=== PATIENT | female | born 1980 | race Caucasian/White ===

== ENCOUNTER 2025-05-09 21:38 | Inpatient (IN) | payer OTHER, SELFPAY ==
[2025-05-09 21:40] VITALS: BP 118/72; PULSE 87; RESP 18; TEMP 36.8; O2SAT 98; BMI 28.3
--- NOTE | 2025-05-09 21:55 | US_ITS ---
PROCEDURE: GALLBLADDER 05/09/2025 REASON FOR EXAM: RUQ PAIN, ABNORMAL LIVER ENZYMES TECHNIQUE: Procedure Code: USGB Modality: US Procedure: GALLBLADDER FINDINGS: Liver: 17.4 cm in length. Normal echogenicity. Intrahepatic biliary ductal dilation is present. Gallbladder: 10.9 cm in length. Sludge and a few gallstones are present. Gallbladder wall thickness of 0.3 cm. Positive sonographic Bryan's sign. Mild pericholecystic fluid. Common bile duct: 1.4 cm in diameter. A few stones are visualized within the common bile duct with the largest measuring 0.6 cm.. Pancreas: Visualized portions within normal limits. Other: Right kidney measures 11.1 cm in length with normal echogenicity. No stones, calculi, or masses. US/Gallbladder IMPRESSION: Choledocholithiasis with a dilated 1.4 cm common bile duct and stones up to 0.6 cm, producing intrahepatic biliary ductal dilation and most likely accounting for the patient's pain and abnormal liver e nzymes. Cholelithiasis with sludge, positive sonographic Bryan's sign, and mild perich olecystic fluid, raising concern for early acute cholecystitis; however, clinical presentation is more strongly explained by ailyn debby obstruction. Reading Location: [id number]
--- NOTE | 2025-05-09 21:57 | EDS_ITS ---
HPI History of Present Illness Chief Complaint: Abn Labs Narrative Narrative: Patient is a 44-year-old female presenting to the emergency department for abnormal labs at her primary care doctor's office. Patient states that Tuesday evening she started to have right upper quadrant pain that radiated to her right upper back. She states that she has had nausea with no vomiting. 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 She reports that she has had "gallbladder attacks" in the past. Endorses occasional chills. Denies fever, chest pain, SOB. Had labs done at her PCP that showed elevated liver enzymes and was told to come to the ED after PCP spoke with Dr. Kumar reportedly. [facility] Medical History no medical history Home Medications Medication Instructions Recorded Last Taken Type NK 05/09/25 Unknown History Allergy/AdvReac Type Severity Reaction Status Date / Time No Known Allergies Allergy Verified 05/09/25 21:44 Surgical History no surgical history Social History Smoking Status: Never smoker ROS ROS ED ROS Narrative see HPI EXAM Physical Exam Narrative Exam Narrative: Vital signs: Reviewed General: Alert and oriented x 3. No acute distress HEENT: Head is normocephalic and atraumatic, sinuses nontender, pupils equal round and reactive. No scleral icterus. Nares are patent. Oropharynx and throat exams normal. Neck: Supple without lymphadenopathy nontender Cardiovascular: Regular rate and rhythm, no murmurs. No rubs or gallops. Normal S1 and S2 Respiratory: Clear to auscultation bilaterally. No wheezes, rales, rhonchi Abdominal: Soft and tender to palpation in the right upper quadrant and epigastric region. Normal bowel sounds. No guarding or rebound. Extremities: No tenderness. No bruising. Normal range of motion. Normal sensation. Skin: No rash or redness. No jaundice. Neurological: Cranial nerves II through XII are grossly intact. Normal strength and sensation. Normal cerebellar function The rest of the physical exam is unremarkable Const Vital Signs: 05/09/25 21:40 05/09/25 22:04 Temperature 98.2 F Temperature Source Temporal Pulse Rate 87 Respiratory Rate 18 Respiratory Effort Normal Respiratory Pattern Normal Blood Pressure 118/72 Blood Pressure Mean 87 Pulse Ox 98 Oxygen Delivery Method Room Air MDM MDM MDM Narrative Medical decision making narrative: Patient is a 44-year-old female presenting emergency department for abnormal labs that her PCP ordered. Patient was seen and examined. Vitals are stable, patient resting in bed comfortably. No acute distress. Differential includes but is not limited to: Cholecystitis, choledocholithiasis, cholangitis, pancreatitis Patient declined analgesics. Labs reviewed from outpatient with transaminitis, elevated total bilirubin of 3.5. CBC with no leukocytosis and a normal hemoglobin. CMP with transaminitis, elevated total bilirubin of 3.67. Normal lipase. No UTI. Right upper quadrant ultrasound shows choledocholithiasis with a dilated 1.4 cm common bile duct and stones up to 0.6 cm, producing intrahepatic biliary ductal dilation and most likely accounting for the patient's pain and abnormal liver enzymes. Cholelithiasis with sludge, positive sonographic Bryan's sign, and mild pericholecystic fluid, raising concern for early acute cholecystitis; however, clinical presentation is more strongly explained by ductal obstruction. Patient started on Zosyn and I spoke with director television news GI, Dr. Kumar, who will completed ERCP tomorrow. Attempted to admit to hospitalist, she ask that I consult general surgeon director television news. I spoke with Dr. Sparks who asked that the patient be admitted to hospitalist. Will attempt admission under hospitalist again. It was determined that patient will be admitted under general surgery, Dr. Sparks. Clinical impression: Choledocholithiasis History & Record Review Discussion w/independent historian: Patient and Significant other Additional record(s) reviewed:: Prior labs Lab Data Attestation: I reviewed the patient's lab results. Labs: Laboratory Results - last 24 hr 05/09/25 05/09/25 21:53 22:00 WBC 5.8 RBC 4.51 Hgb 13.7 Hct 40.7 MCV 90.2 MCH 30.4 MCHC 33.7 RDW Std Deviation 41.5 RDW Coeff of Laura 12.6 Plt Count 260 MPV 10.2 Immature Gran % (Auto) 0.200 Neut % (Auto) 62.8 Lymph % (Auto) 23.7 [place] % (Auto) 9.7 Eos % (Auto) 2.6 Baso % (Auto) 1.0 Absolute Neuts (auto) 3.6 Absolute Lymphs (auto) 1.36 Nucleated RBC % 0 Sodium 140 Potassium 3.5 Chloride 105 Carbon Dioxide 24.4 Anion Gap 11 BUN 4 Creatinine 0.66 L Estim Creat Clear Calc 110.01 Est GFR (MDRD) Non-Af 112 BUN/Creatinine Ratio 6.0 L Glucose 121 H Calcium 9.2 Total Bilirubin 3.67 H AST 176 H ALT 437 H Alkaline Phosphatase 209 H Total Protein 7.3 Albumin 4.2 Globulin 3.1 Albumin/Globulin Ratio 1.4 Lipase 27 Urine Color Yellow Urine Clarity Clear Urine pH 7.0 Ur Specific [place] 1.005 Urine Protein 15 H Urine Glucose (UA) Normal Urine Ketones Negative Urine Occult Blood 150 H Urine Nitrite Negative Urine Bilirubin Negative Urine Urobilinogen Normal Ur Leukocyte Esterase Negative Urine RBC 5-10 SEEN Urine WBC 0-5 SEEN Ur Squamous Epith Cells 0-5 SEEN Urine Bacteria 1+ Urine Mucus 0 SEEN Urine Test Negative Radiography Diagnostic Testing: Clinical Impression(s) from Imaging Studies Gallbladder Ultrasound 05/09/25 21:55 IMPRESSION: Choledocholithiasis with a dilated 1.4 cm common bile duct and stones up to 0.6 cm, producing intrahepatic biliary ductal dilation and most likely accounting for the patient's pain and abnormal liver enzymes. Cholelithiasis with sludge, positive sonographic Bryan's sign, and mild pericholecystic fluid, raising concern for early acute cholecystitis; however, clinical presentation is more strongly explained by ductal obstruction. Reading Location: [id number] Discharge Plan Disposition Disposition: Acute Care [facility] Discharge Date/Time: 05/10/25 01:31
[2025-05-09 22:09] LABS: Mucous, Urine 0 SEEN /hpf (<or=2+)
[2025-05-09 22:12] LABS: Hematocrit 40.7 % (37-47); Hemoglobin 13.7 g/dL (12.0-15.0); Immature Granulocytes Count 0.010 X10^3/uL (0.0-0.0); Mean Corp Hgb Conc 33.7 g/dL (32-36); Mean Corpuscular Volume 90.2 fL (81-99); Mean Platelet Vol. 10.2 fl (6.2-12.0); NRBC Flagged by Analyzer 0 % (0-5); Platelet Count 260 K/mm3 (150-450); RBC Distribution Width CV 12.6 % (11.6-14.6); RBC Distribution Width SD 41.5 fl (35.1-43.9); Red Blood Count 4.51 M/mm3 (4.2-5.4); White Blood Count 5.8 K/mm3 (4.4-11.0)
[2025-05-09 22:39] LABS: AST(SGOT) 176 U/L (<=31); Alanine Aminotransfer ALT/SGPT 437 U/L (<=34); Albumin, Serum 4.2 g/dL (3.5-5.0); Alkaline Phosphatase 209 U/L (35-104); Anion Gap 11 (5-15); BUN 4 mg/dL (4-19); BUN/Creat Ratio 6.0 RATIO (10-20); Calcium,Total 9.2 mg/dL (7.6-11.0); Carbon Dioxide 24.4 mmol/L (21.0-32.0); Chloride 105 mmol/L (98-108); Estimated Creatinine Clearance 110.01 ml/min (50-250); Globulin 3.1 g/dL (2.2-4.2); Glucose 121 mg/dL (70-99); Lipase 27 U/L (13-75); Potassium 3.5 mmol/L (3.3-5.1)
[2025-05-09 22:39] LABS: Color, Urine Yellow (Yellow); Glucose, Dipstick Normal (Normal); Ketone-Dipstick Negative (Negative); Leukocyte Esterase-Dipstick Negative /ul (Negative); Nitrite-Dipstick Negative (Negative); Occult Blood-Urine 150 /ul (Negative); Protein-Dipstick 15 mg/dl (Negative); Specific Gravity, Urine 1.005 (1.002-1.030); Urine Bilirubin Dipstick Negative (Negative)
[2025-05-09 22:51] LABS: Red Blood Cells-Urine 5-10 SEEN /hpf (0-5)
[2025-05-09 22:52] LABS: Squamous Epithelial Cells - UA 0-5 SEEN /hpf (5-10)
[2025-05-09 22:53] LABS: Internal QC Validated? YES +Cl - CLEAR BKGD; Pregnancy, Urine Negative Negative; Record Kit Lot#,Urine Preg 0000980607
[2025-05-09] MEDS: Piperacil/Tazobactam 3.375 GM in 0.9% Normal Saline (50mL MB+) 50 ML IV (23:22)
[2025-05-09 23:40] VITALS: BP 116/74; PULSE 64; RESP 18; O2SAT 98
[2025-05-09 23:45] VITALS: BP 108/57; PULSE 89; RESP 16; TEMP 36.1; O2SAT 100
[2025-05-10] VITALS (15 sets, daily range): BP systolic 96–119; BP diastolic 58–85; PULSE 64–93; RESP 14–18; TEMP 36.3–36.9; O2SAT 95–99; BMI 28.6
--- NOTE | 2025-05-10 00:54 | HP.PCM_ITS ---
HPI - General General Date of Service: 05/10/25 Chief Complaint: Abdominal pain HPI Narrative FABIANA FAUSTIN, is a 44 F who presents to [facility] direction from her PCP after first developing acute onset diffuse abdominal pain 5 days ago. She states the pain spontaneously remitted for a day but then returned consistently for the following 3 days. She noticed some relative localization to the right abdomen. She reports that she had some abnormal laboratory testing and ultrasound was originally scheduled in several days as an outpatient but with the laboratory results she was advised to present to the emergency department for an earlier exam. Beyond the development of her abdominal pain Mrs. Faustin notes some associated dark urine, constipation, and acholic stools today. ED workup revealed normal white blood cell count but significantly elevated bilirubin at 3.6 as well as transaminitis. Right upper quadrant ultrasound was obtained showing dilated common bile duct to 1.4 cm with choledocholithiasis. Radiology noted concern for possible early acute cholecystitis given the presence of some pericholecystic fluid and positive sonographic Bryan sign but were unable to be conclusive as they felt this could just be secondary to the distal obstruction more generally. Patient states that she has had concern for "gallbladder attacks" approximately 3 times over the last 3 months. She denies any history of being diagnosed with gallstones but shares that her mother dealt with gallbladder issues and identified a similar pattern with her daughter. Mrs. Faustin goes on to detail that this concern has gone beyond even the last 3 months to the last several years. Patient denies any regular intake of medication and has never underwent surgery. [facility] Medical History no medical history Home Medications Medication Instructions Recorded Last Taken Type NK 05/09/25 Unknown History Allergy/AdvReac Type Severity Reaction Status Date / Time No Known Allergies Allergy Verified 05/09/25 21:44 Surgical History no surgical history Social History Smoking Status: Never smoker Vital Signs Vital Signs Vital Signs: 05/09/25 21:40 05/09/25 22:04 05/09/25 23:40 Temperature 98.2 F Temperature Source Temporal Pulse Rate 87 64 Respiratory Rate 18 18 Respiratory Effort Normal Respiratory Pattern Normal Blood Pressure 118/72 116/74 Blood Pressure Mean 87 88 Pulse Ox 98 98 Oxygen Delivery Method Room Air Room Air 05/10/25 00:22 05/10/25 00:22 Temperature 98.2 F 98.2 F Temperature Source Oral Pulse Rate 64 64 Respiratory Rate 18 18 Respiratory Effort Respiratory Pattern Blood Pressure 116/74 116/74 Blood Pressure Mean 88 88 Pulse Ox 98 98 Oxygen Delivery Method Room Air Weight Weight: 165 lb Body Mass Index (BMI) 28.3 Physical Exam Const alert, oriented x3, no apparent distress and well nourished General Appearance: cooperative Resp normal respiratory effort GI GI Narrative: Normal habitus, nondistended, no visible hernia, soft, mildly tender to palpation primarily in the epigastrium and slightly to the right upper quadrant. Negative Bryan sign. Results Lab / Micro Data 05/09/25 22:00 05/09/25 22:00 Labs: Laboratory Results - last 24 hr 05/09/25 21:53: Urine Color Yellow, Urine Clarity Clear, Urine pH 7.0, Ur Specific [place] 1.005, Urine Protein 15 H, Urine Glucose (UA) Normal, Urine Ketones Negative, Urine Occult Blood 150 H, Urine Nitrite Negative, Urine Bilirubin Negative, Urine Urobilinogen Normal, Ur Leukocyte Esterase Negative, Urine RBC 5-10 SEEN, Urine WBC 0-5 SEEN, Ur Squamous Epith Cells 0-5 SEEN, Urine Bacteria 1+, Urine Mucus 0 SEEN, Urine Test Negative 05/09/25 22:00: WBC 5.8, RBC 4.51, Hgb 13.7, Hct 40.7, MCV 90.2, MCH 30.4, MCHC 33.7, RDW Std Deviation 41.5, RDW Coeff of Laura 12.6, Plt Count 260, MPV 10.2, Immature Gran % (Auto) 0.200, Neut % (Auto) 62.8, Lymph % (Auto) 23.7, [place] % (Auto) 9.7, Eos % (Auto) 2.6, Baso % (Auto) 1.0, Absolute Neuts (auto) 3.6, Absolute Lymphs (auto) 1.36, Nucleated RBC % 0, Sodium 140, Potassium 3.5, Chloride 105, Carbon Dioxide 24.4, Anion Gap 11, BUN 4, Creatinine 0.66 L, Estim Creat Clear Calc 110.01, Est GFR (MDRD) Non-Af 112, BUN/Creatinine Ratio 6.0 L, Glucose 121 H, Calcium 9.2, Total Bilirubin 3.67 H, AST 176 H, ALT 437 H, A lkaline Phosphatase 209 H, Total Protein 7.3, Albumin 4.2, Globulin 3.1, Albumin/Globulin Ratio 1.4, Lipase 27 Imaging Radiology Impression Gallbladder Ultrasound 05/09/25 21:55 IMPRESSION: Choledocholithiasis with a dilated 1.4 cm common bile duct and stones up to 0.6 cm, producing intrahepatic biliary ductal dilation and most likely accounting for the patient's pain and abnormal liver enzymes. Cholelithiasis with sludge, positive sonographic Bryan's sign, and mild pericholecystic fluid, raising concern for early acute cholecystitis; however, clinical presentation is more strongly explained by ductal obstruction. Reading Location: [id number] Assessment & Plan Assessment/Plan (1) Choledocholithiasis: PLAN: Patient is a 44-year-old, otherwise healthy, female who presents with signs and symptoms of choledocholithiasis that began approximately 5 days ago (although patient gives a vague history of symptoms perhaps preceding this onset by several months). I discussed with her the pathophysiology of this condition and its treatment–including ERCP with stone removal followed by same admission cholecystectomy to manage her risk for future choledocholithiasis. I am presently unconvinced of a concurrent diagnosis of cholecystitis. I shared we would plan to admit to inpatient, maintain n.p.o. with IV antibiotic therapy to minimize her risk for cholangitis, and await consultation with GI for ERCP likely later today (emergency medicine confirmed out reach to GI prior to contacting me). Given the approach of the weekend would then likely be looking at performing cholecystectomy 05/13/2025. All questions were answered from patient and she confirmed her understanding. Frank Sparks MD General Surgery Endocrine Surgery Pager: [facility] [address] [place] [address], [facility], [address] [place] [address] Office: [phone] Charges/Coding Visit Charges Inpatient E&M: 67719 Init Hosp L2
[2025-05-10] MEDS: 0.9% Saline Lock 10 ML Syringe IV ×2 (01:58→13:38)
[2025-05-10] MEDS: 0.9% Normal Saline (1000mL) 1,000 ML 125 ML IV ×2 (01:58→10:53)
[2025-05-10] MEDS: Piperacil/Tazobactam 3.375 GM in 0.9% Normal Saline (50mL MB+) 50 ML IV ×3 (05:10→22:00)
--- NOTE | 2025-05-10 06:33 | EKG12_ITS ---
Test Reason : PRE OP Blood Pressure : */* mmHG Vent. Rate : 70 BPM Atrial Rate : 70 BPM P-R Int : 134 ms QRS Dur : 86 ms QT Int : 428 ms P-R-T Axes : 58 84 68 degrees QTcB Int : 462 ms Normal sinus rhythm Normal ECG No previous ECGs available Confirmed by JUAN PABLO KINGSLEY, JONATAN ([id number]), subeditor GUERA HIDALGO ([id number]) on 05/13/2025 9:32:52 AM Referred By: WOLFGANG Confirmed By: JONATAN ALMEIDA MD
[2025-05-10 08:19] LABS: Hematocrit 39.7 % (37-47); Hemoglobin 13.2 g/dL (12.0-15.0); Immature Granulocytes Count 0.010 X10^3/uL (0.0-0.0); Mean Corp Hgb Conc 33.2 g/dL (32-36); Mean Corpuscular Volume 89.4 fL (81-99); Mean Platelet Vol. 10.6 fl (6.2-12.0); NRBC Flagged by Analyzer 0 % (0-5); Platelet Count 248 K/mm3 (150-450); RBC Distribution Width CV 12.7 % (11.6-14.6); RBC Distribution Width SD 41.9 fl (35.1-43.9); Red Blood Count 4.44 M/mm3 (4.2-5.4); White Blood Count 5.4 K/mm3 (4.4-11.0)
[2025-05-10 08:59] LABS: AST(SGOT) 196 U/L (<=31); Alanine Aminotransfer ALT/SGPT 440 U/L (<=34); Albumin, Serum 3.7 g/dL (3.5-5.0); Alkaline Phosphatase 193 U/L (35-104); Anion Gap 10 (5-15); BUN 5 mg/dL (4-19); BUN/Creat Ratio 8.5 RATIO (10-20); Calcium,Total 8.8 mg/dL (7.6-11.0); Carbon Dioxide 22.0 mmol/L (21.0-32.0); Chloride 110 mmol/L (98-108); Estimated Creatinine Clearance 123.33 ml/min (50-250); Globulin 2.5 g/dL (2.2-4.2); Glucose 104 mg/dL (70-99); Potassium 3.5 mmol/L (3.3-5.1)
--- NOTE | 2025-05-10 10:05 | CASEMGMT ---
Dx:choleocholithiasis LACE:1 6-Clicks:24 Medical record reviewed and patient evaluated for identification of discharge planning needs. Based on this review, at this time criteria are not present to indicate a need for discharge planning. Will remain available to assist with discharge planning needs as identified or requested.
[2025-05-10] MEDS: Pantoprazole Sodium 40 MG in 0.9% Normal Saline (100mL MB+) 100 ML 330 MG IV (10:53)
--- NOTE | 2025-05-10 12:37 | DCINST_ITS ---
Documented by User: Dr. Frank Sparks MD 05/13/25 18:31 Discharge Instructions Dressing / Incision Discharge Activity: May Not Drive (No driving while using narcotic pain medication) and May Shower Ice area for (Minutes): 20 Dressing / Incision Call your doctor if your incision/area has: Increased Pain/ Swelling and Foul Smelling Discharge Call your doctor if you observe: Fever of 101 or Higher and Uncontrolled pain Cleanse incision/area with: Soap & Water Follow Up Care Please Follow Up With: Frank Sparks MD When: Tuesday for surgery Test Results: Test results from this visit will be discussed in further detail at your follow- up appointment, if applicable. Discharge Plan Admission Admit Date/Time: 05/10/25 00:49 Primary Reason for Your Visit: Choledocholithiasis Attending Provider: Frank Sparks Primary Care Provider: Penny Kuo Consulting Providers: Vitaliy Kumar Discharge Orders/Prescriptions Prescriptions: No Action oxycodone 5 mg tablet 5 mg PO Q6H PRN (Reason: pain) 3 Days Qty: 14 0RF Referrals / Follow Up: Penny Kuo MD [Primary Care Provider, Medical] Vitaliy Kumar DO [Med Staff - Active Staff, Gastroenterology] Referral Note: Will need follow-up for common bile duct stent removal Disposition Disposition (needs filled in before D/C Order can be placed): Home, Self Care Documented by User: Dr. Anabela Mcfarlane MD 05/11/25 09:24 Discharge Instructions DC O2, CPAP, BIPAP needs Home O2 Discharge instructions: No Follow Up Care When: Tuesday for surgery–arrival at 11:30 AM for 1 PM surgery tentative Discharge Plan Admission Admit Date/Time: 05/10/25 00:49 Primary Reason for Your Visit: Choledocholithiasis Attending Provider: Frank Sparks Primary Care Provider: Penny Kuo Consulting Providers: Vitaliy Kumar Discharge Orders/Prescriptions Prescriptions: No Action oxycodone 5 mg tablet 5 mg PO Q6H PRN (Reason: pain) 3 Days Qty: 14 0RF Referrals / Follow Up: Penny Kuo MD [Primary Care Provider, Medical] Friend,DO Vitaliy [Med Staff - Active Staff, Gastroenterology] Referral Note: Will need follow-up for common bile duct stent removal Disposition Disposition (needs filled in before D/C Order can be placed): Home, Self Care
--- NOTE | 2025-05-10 12:43 | PN_ITS ---
Progress Note Patient has requested discharge to home with short interval outpatient follow-up for cholecystectomy. I stated I found this reasonable as she seems reliable to report for an outpatient appointment. I did qualify this stating that she must clinically be well enough for discharge following her ERCP. If there are any questions or concerns we would reserve the right to maintain her inpatient status. Otherwise, I have booked her for 1300 on 05/13/2025. She was provided with information on procedure pricing, preoperative wash, and general instr uctions on when and where to present. She confirms understanding. Will await ERCP pending with GI later this evening and tentatively plan for discharge tomorrow 05/11/2025 given the late hour of anticipated procedure. Dr. Mcfarlane will be covering.
--- NOTE | 2025-05-10 13:55 | CON.PCM.GI_ITS ---
HPI Consult Data Date of Consult: 05/10/25 HPI Narrative Reason for Consultation: Choledocholithiasis HPI Narrative: FABIANA FAUSTIN, is a 44 F who presents [to [facility] with worsening abdominal pain. I was called yesterday by her primary care physician after he had checked LFTs due to worsening abdominal pain she was discovered to have LFT pattern elevation consistent with cholestatic hepatitis. I have told him to send the patient to emergency room for evaluation. When she got to the emergency room her labs were rechecked and she now had jaundice with worsening liver enzyme elevation. White blood cell count was mildly elevated. She was started on antibiotics for acute biliary obstruction with possible sepsis. I was consulted by surgery for therapeutic ERCP.] [facility] Medical History no medical history Home Medications Medication Instructions Recorded Last Taken Type NK 05/09/25 Unknown History Allergy/AdvReac Type Severity Reaction Status Date / Time No Known Allergies Allergy Verified 05/09/25 21:44 Surgical History no surgical history Social History Smoking Status: Never smoker ROS Constitutional Constitutional: Denies fatigue, fever(s), poor appetite, weight gain or weight loss Gastrointestinal Gastrointestinal: Denies belching, bloating, change in bowel habits, change in stool character, chewing difficulty, coffee ground emesis, constipation, cramping, diarrhea, dyspepsia, dysphagia, early satiety, excessive flatus, fecal incontinence, heartburn, hematemesis, hematochezia, hemorrhoids, loose stools, melena, nausea, odynophagia, rectal bleeding, tenesmus, vomiting or weight changes Physical Exam Const alert, oriented x3, no apparent distress and healthy appearing General Appearance: cooperative GI normal to inspection, nondistended, normoactive bowel sounds, soft to palpation, non-tender and non-distended Percussion: normal to percussion Rectal Exam: deferred Lab / Micro Data 05/10/25 07:44 05/10/25 07:44 Labs: Laboratory Results - last 24 hr 05/09/25 21:53: Urine Color Yellow, Urine Clarity Clear, Urine pH 7.0, Ur Specific [place] 1.005, Urine Protein 15 H, Urine Glucose (UA) Normal, Urine Ketones Negative, Urine Occult Blood 150 H, Urine Nitrite Negative, Urine Bilirubin Negative, Urine Urobilinogen Normal, Ur Leukocyte Esterase Negative, Urine RBC 5-10 SEEN, Urine WBC 0-5 SEEN, Ur Squamous Epith Cells 0-5 SEEN, Urine Bacteria 1+, Urine Mucus 0 SEEN, Urine Test Negative 05/09/25 22:00: WBC 5.8, RBC 4.51, Hgb 13.7, Hct 40.7, MCV 90.2, MCH 30.4, MCHC 33.7, RDW Std Deviation 41.5, RDW Coeff of [place] 12.6, Plt Count 260, MPV 10.2, Immature Gran % (Auto) 0.200, Neut % (Auto) 62.8, Lymph % (Auto) 23.7, [place] % (Auto) 9.7, Eos % (Auto) 2.6, Baso % (Auto) 1.0, Absolute Neuts (auto) 3.6, Absolute Lymphs (auto) 1.36, Nucleated RBC % 0, Sodium 140, Potassium 3.5, Chloride 105, Carbon Dioxide 24.4, Anion Gap 11, BUN 4, Creatinine 0.66 L, Estim Creat Clear Calc 110.01, Est GFR (MDRD) Non-Af 112, BUN/Creatinine Ratio 6.0 L, Glucose 121 H, Calcium 9.2, Total Bilirubin 3.67 H, AST 176 H, ALT 437 H, A lkaline Phosphatase 209 H, Total Protein 7.3, Albumin 4.2, Globulin 3.1, Albumin/Globulin Ratio 1.4, Lipase 27 05/10/25 07:44: WBC 5.4, RBC 4.44, Hgb 13.2, Hct 39.7, MCV 89.4, MCH 29.7, MCHC 33.2, RDW Std Deviation 41.9, RDW Coeff of [place] 12.7, Plt Count 248, MPV 10.6, Immature Gran % (Auto) 0.200, Neut % (Auto) 63.6, Lymph % (Auto) 22.0, [place] % (Auto) 10.3 H, Eos % (Auto) 3.0, Baso % (Auto) 0.9, Absolute Neuts (auto) 3.4, Absolute Lymphs (auto) 1.18, Nucleated RBC % 0, Sodium 142, Potassium 3.5, C hloride 110 H, Carbon Dioxide 22.0, Anion Gap 10, BUN 5, Creatinine 0.57 L, Estim Creat Clear Calc 123.33, Est GFR (MDRD) Non-Af 116, BUN/Creatinine Ratio 8.5 L, Glucose 104 H, Calcium 8.8, Total Bilirubin 2.46 H, AST 196 H, ALT 440 H, Alkaline Phosphatase 193 H, Total Protein 6.2, Albumin 3.7, Globulin 2.5, Albumin/Globulin Ratio 1.4 Imaging Radiology Impression Gallbladder Ultrasound 05/09/25 21:55 IMPRESSION: Choledocholithiasis with a dilated 1.4 cm common bile duct and stones up to 0.6 cm, producing intrahepatic biliary ductal dilation and most likely accounting for the patient's pain and abnormal liver enzymes. Cholelithiasis with sludge, positive sonographic Bryan's sign, and mild pericholecystic fluid, raising concern for early acute cholecystitis; however, clinical presentation is more strongly explained by ductal obstruction. Reading Location: [id number] Assessment & Plan Assessment/Plan (1) Choledocholithiasis: PLAN: Patient will undergo therapeutic ERCP with stone removal and temporary stent placement in anticipation for cholecystectomy on 05/13/2025. She was explained alternatives, risk and benefits include almost any bleeding, infection, sepsis, perforation, need for emergent surgery and . She will have an ASA of 3. Charges/Coding Visit Charges Inpatient E&M: 40321 Init Hosp L3
--- NOTE | 2025-05-10 16:48 | PCM.PRE.AN2 ---
ASA Classification* ASA Classification ASA Classification: 2 and E Assessment & Plan Anesthesia* Anesthesia Assessment Anesthesia Assessment: Discussed sedation and/or anesthesia options, risks, benefits, and alternatives with patient/parents/legal guardian/POA. Questions invited. The patient/parents/legal guardian/POA seems to understand and agrees to proceed with anesthesia plan. Reviewed the physical assessment, medical history, allergy history and patient home medications list prior to surgery/procedure/anesthetic and documented any changes. Performed airway and anesthesia risk assessments. Anesthesia Type Anesthesia Type: General History Source History Obtained from:: Patient and Chart Anesthesia Focused Assessment* Temperature: 98.1 F Pulse Rate: 76 Blood Pressure: 119/73 Respiratory Rate: 18 Pulse Ox: 95 Oxygen Delivery Method: Room Air Airway Assessment Mouth opens: >3 cm Mallampati Score: II Teeth Condition: Missing (Patient missing a couple teeth. Rest of the teeth are tight.) Neck Range of motion (ROM): Limited ROM (Slight Decrease) Labs Anesthesia Preop lab: CBC WBC, (4.4-11.0) 5.4 K/mm3 Today, 07:44 RBC, (4.2-5.4) 4.44 M/mm3 Today, 07:44 Hgb, (12.0-15.0) 13.2 g/dL Today, 07:44 Hct, (37-47) 39.7 % Today, 07:44 Plt Count, (150-450) 248 K/mm3 Today, 07:44 CHEMISTRY Potassium, (3.3-5.1) 3.5 mmol/L Today, 07:44 Sodium, (133-145) 142 mmol/L Today, 07:44 BUN, (4-19) 5 mg/dL Today, 07:44 Creatinine, (0.70-1.20) 0.57 mg/dL L Today, 07:44 Glucose, (70-99) 104 mg/dL H Today, 07:44 COAG Urine Test Negative Negative 05/09/25, 21:53 Pre-Assessment Diagnosis/Proposed Procedure Planned Operative Procedure(s): Endoscopic retrograde cholangiopancreatography. 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 When Was Last Pacemaker Check QUESTION #4 FULL TEXT: You/Your Family Experience fever (hyperthermia) with Anesthesia Last Oral Intake Last Oral intake: Last Oral Intake NPO since 00:00 05/10/25 08:14 Meds taken in AM with sips of No 05/10/25 08:14 water? Meds patient instructed to take am of surgery Any additional information?: Yes NPO since: 12:30 (Patient had Jell-O and apple juice at 12:30 PM.) PONV PONV - steel roller: PONV - steel roller Female HX of Motion Sickness HX of N/V After Surgery Non-Smoker Duration of Surgery greater than 60 minutes Number of Risk Factors PONV Score Height & Weight Height & Weight: Anesthesia: Height & Weight Height 5 ft 3 in 05/10/25 13:51 Weight: 73.3 kg 05/10/25 13:51 Body Mass Index (BMI) 28.6 05/10/25 08:14 Respiratory Assessment Respiratory Assessment - steel roller: Respiratory Tract Infection Hx - steel roller Hx Respiratory Tract Infection No 05/10/25 01:37 STOP Sleep Apnea STOP Sleep Apnea - steel roller: STOP Sleep Apnea - steel roller Hx Hypertension No 05/10/25 01:08 Hx Sleep Apnea No 05/10/25 01:08 CPAP BIPAP Do you snore loudly (louder No 05/10/25 01:08 than talking or can be heard Do you often feel tired/ No 05/10/25 01:08 fatigued/ sleepy during daytime? Has anyone observed you stop No 05/10/25 01:08 breathing during sleep? STOP Results Negative 05/10/25 01:08 QUESTION #5 FULL TEXT : Do you snore loudly (louder than talking or can be heard through closed doors)? 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 Specify any problems Hx of Preganancy in last 3 No 05/10/25 01:08 Months Nurse Filling Out Transfusion EVIZZO 05/10/25 01:08 & Questions: Date: 05/10/25 05/10/25 01:08 Time: 01:43 05/10/25 01:08 Patient unable to answer at this time (ie. confused, unrespo /Reproduction History /Reproductive History - steel roller: /Reproductive Hx- steel roller Hx Now No 05/10/25 01:37 Gestational Age (in weeks): EDC: Hx Hx Para Hx Section SAB No 05/10/25 01:37 Does the father of the baby or his family experience fever w Father of the baby Malignant Hypertension history comment Active Medications Active Medications: Current Medications Generic Name Dose Route Start Last Admin Trade Name Freq PRN Reason Stop Dose Admin Acetaminophen 650 mg 05/10/25 00:49 05/10/25 13:37 Acetaminophen 325 Mg Tablet PO 650 mg Q6H PRN PRN Administration Pain 1-10 or Fever Hydromorphone HCl 0.5 mg 05/10/25 00:49 Hydromorphone 0.5 Mg/0.5 Ml Syringe IV Q4H PRN PRN Pain Score 6-10 Sodium Chloride 1,000 mls @ 125 mls/hr 05/10/25 00:50 05/10/25 16:06 IV 0 mls/hr .Q8H RUDDY Infusion Piperacillin Sod/Tazobactam 50 mls @ 12.5 mls/hr 05/10/25 06:00 05/10/25 16:06 Sod 3.375 gm/ Sodium Chloride IV 0 mls/hr Q8 RUDDY Infusion Pantoprazole Sodium 40 mg/ 100 mls @ 330 mls/hr 05/10/25 10:00 05/10/25 11:12 Sodium Chloride IV Infused Q24 RUDDY Infusion Sodium Chloride 250 mls @ 15 mls/hr 05/10/25 01:10 IV .[id number] PRN Saline Flush Sodium Chloride 250 mls @ 15 mls/hr 05/10/25 01:10 IV .[id number] PRN Additional IVPB Infusion Ondansetron HCl 4 mg 05/10/25 00:49 Ondansetron 4 Mg/2 Ml Vial IV Q6H PRN PRN NAUSEA/VOMITING Sodium Chloride 10 - 40 ml 05/10/25 01:10 05/10/25 13:38 0.9% Saline Lock 10 Ml Syringe IV 10 ml UD PRN Administration SALINE FLUSH PFSH Medical History no medical history Home Medications Medication Instructions Recorded Last Taken Type NK 05/09/25 Unknown History Allergy/AdvReac Type Severity Reaction Status Date / Time No Known Allergies Allergy Verified 05/09/25 21:44 Surgical History no surgical history no surgical history Social History Smoking Status: Never smoker Review of Systems (Anesthesia) ROS Narrative System reviewed and no additional complaints, except as documented.
[2025-05-10] MEDS: Lactated Ringers 1,000 ML 15 ML IV (16:51)
[2025-05-10] MEDS: Lactated Ringers 500 ML IV (18:37)
[2025-05-10] MEDS: Lidocaine 1% (5 ml sdv) 5 ML Vial 3 ML IV (18:49)
--- NOTE | 2025-05-10 19:00 | RAD_ITS ---
PROCEDURE: ERCP BILIARY/PANCREAS; O.R. FLUORO FOR C-ARM 05/10/2025 REASON FOR EXAM: ERCP TECHNIQUE: Procedure Code: RADERCP; RADORFL_C_ARM Modality: DX Procedure: ERCP BILIARY/PANCREAS; O.R. FLUORO FOR C-ARM COMPARISON: 09 May 2025 FINDINGS: Several fluoroscopic images submitted from a radiology supported surgically performed ERCP demonstrate contrast opacification of the common hepatic duct with multiple lucent filling defects which could represent stones or bubbles. No definitive free spill was visualized in the duodenum. Please refer to operative note for complete real-time findings and impressions. 7 images were submitted for review with a total fluoroscopic time of 107.8 seconds with a cumulative dose of 22.69 mGy. RAD/ERCP Biliary/Pancreas IMPRESSION: Access of the common hepatic duct with filling defects that could represent gerald bles versus stones. No definitive free spill of contrast into the duodenum visualized on the provided images. Please refer to operative note for complete real-time findings and impressions. Reading Location: [facility]
--- NOTE | 2025-05-10 19:00 | RAD_ITS ---
PROCEDURE: ERCP BILIARY/PANCREAS; O.R. FLUORO FOR C-ARM 05/10/2025 REASON FOR EXAM: ERCP TECHNIQUE: Procedure Code: RADERCP; RADORFL_C_ARM Modality: DX Procedure: ERCP BILIARY/PANCREAS; O.R. FLUORO FOR C-ARM COMPARISON: 09 May 2025 FINDINGS: Several fluoroscopic images submitted from a radiology supported surgically performed ERCP demonstrate contrast opacification of the common hepatic duct with multiple lucent filling defects which could represent stones or bubbles. No definitive free spill was visualized in the duodenum. Please refer to operative note for complete real-time findings and impressions. 7 images were submitted for review with a total fluoroscopic time of 107.8 seconds with a cumulative dose of 22.69 mGy. RAD/O.R. Fluoro for C-Arm IMPRESSION: Access of the common hepatic duct with filling defects that could represent gerald bles versus stones. No definitive free spill of contrast into the duodenum visualized on the provided images. Please refer to operative note for complete real-time findings and impressions. Reading Location: [facility]
[2025-05-10] MEDS: fentaNYL 100 MCG/2 ML Ampul IV (19:51)
--- NOTE | 2025-05-10 20:21 | OP.PROVAT_ITS ---
05/10/2025 Penny Kuo Md Re : ERCP procedure for Maria Guadalupe De La Cruz Dear Shiela This procedure was performed on Saturday, May 10, 2025. My impressions and recommendations are as follows: Impressions : - The entire main bile duct was dilated, with a stone causing an obstruction. - Choledocholithiasis was found. Complete removal was accomplished by biliary sphincterotomy and balloon extraction. - One temporary stent was placed into the ventral pancreatic duct. - A biliary sphincterotomy was performed. - The biliary tree was swept. - One temporary stent was placed into the common bile duct. Recommendations : My findings are described in the full procedure note, which is enclosed. If I can be of further assistance, please feel free to contact me at . Sincerely, Vitaliy Kumar, 05/10/2025 8:20:40 PM This report has been signed electronically.
--- NOTE | 2025-05-10 20:21 | OP.ERCP_ITS ---
Patient Name: Maria Guadalupe De La Cruz Procedure Date: 05/10/2025 6:28 PM Date of : 1980 Age: 44 Procedure: ERCP Indications: Bile duct stone(s), For therapy of bile duct stone(s), Jaundice, Elevated liver enzymes Providers: Vitaliy Kumar DO Medicines: Monitored Anesthesia Care Patient Profile: This is a 44 year old female. Refer to note in patient chart for documentation of history and physical. Patient has symptoms of acute abdominal cramping, acute right upper quadrant abdominal pain, acute jaundice and acute nausea. This patient has no history of previous ERCP. This patient has no history of surgical alteration of the upper digestive tract anatomy. Complications: No immediate complications. Procedure: Pre-Anesthesia Assessment: - Prior to the procedure, a History and Physical was performed, and patient medications and allergies were reviewed. The patient is competent. The risks and benefits of the procedure and the sedation options and risks were discussed with the patient. All questions were answered and informed consent was obtained. Patient identification and proposed procedure were verified by the physician in the pre-procedure area. Mental Status Examination: alert and oriented. Airway Examination: normal oropharyngeal airway and neck mobility. Respiratory Examination: clear to auscultation. CV Examination: normal. Prophylactic Antibiotics: The patient does not require prophylactic antibiotics. Prior Anticoagulants: The patient has taken no anticoagulant or antiplatelet agents except for NSAID medication. ASA Grade Assessment: II - A patient with mild systemic disease. After reviewing the risks and benefits, the patient was deemed in satisfactory condition to undergo the procedure. The anesthesia plan was to use general anesthesia. Immediately prior to administration of medications, the patient was re-assessed for adequacy to receive sedatives. The heart rate, respiratory rate, oxygen saturations, blood pressure, adequacy of pulmonary ventilation, and response to care were monitored throughout the procedure. The physical status of the patient was re-assessed after the procedure. After obtaining informed consent, the scope was passed under direct vision. Throughout the procedure, the patient's blood pressure, pulse, and oxygen saturations were monitored continuously. The Duodenoscope was introduced through the mouth, and advanced to the duodenum and used to inject contrast into the bile duct and ventral pancreatic duct. The procedure was determined to be ASGE Complexity Level 3. A pancreatic duct stent was placed as a prophylactic measure during today's ERCP procedure. Scope In: 7:02:28 PM Scope Out: 8:11:19 PM Total Procedure Duration Time 1 hour 8 minutes 51 seconds Findings: The trolley collector film was normal. The esophagus was successfully intubated under direct vision. The scope was advanced to a normal major papilla in the descending duodenum without detailed examination of the pharynx, larynx and associated structures, and upper GI tract. The upper GI tract was grossly normal. The ventral pancreatic duct was deeply cannulated with the short-nosed traction sphincterotome. Contrast was injected. I personally interpreted the bile duct and pancreatic duct images. There was brisk flow of contrast through the ducts. Image quality was adequate. Contrast extended to the cystic duct. Contrast extended to the bifurcation. Contrast extended to the hepatic ducts. Contrast extended to the entire biliary tree. Contrast extended to the pancreatic duct. Opacification of the entire pancreatic ductal system was successful. The maximum diameter of the ducts was 3 mm. The entire opacified area was normal. A 0.035 inch x 260 cm straight Dreamwire was passed into the ventral pancreatic duct. One 5 Fr by 5 cm temporary stent with a full internal pigtail was placed 5 cm into the ventral pancreatic duct. Clear fluid flowed through the stent. The stent was in good position. The bile duct was deeply cannulated with the short-nosed traction sphincterotome. Contrast was injected. Opacification of the entire biliary tree was successful. The maximum diameter of the ducts was 10 mm. The main bile duct and right main hepatic duct contained multiple stones, the largest of which was 6 mm in diameter. The main bile duct was diffusely dilated, with a stone causing an obstruction. The largest diameter was 5 mm. A long 0.025 inch Jagwire was passed into the biliary tree. A 5 mm biliary sphincterotomy was made with a traction (standard) sphincterotome using ERBE electrocautery. There was no post-sphincterotomy bleeding. The biliary tree was swept with a 12 mm balloon starting at the biliary pancreatic junction, upper third of the main bile duct, middle third of the main bile duct, lower third of the main duct, cystic duct, bifurcation, left main hepatic duct, right intrahepatic duct(s) and right main hepatic duct. Sludge was swept from the duct. All stones were removed. One 10 Fr by 7 cm temporary stent was placed 5 cm into the common bile duct. Bile flowed through the stent. The stent was in good position. Impression: - The entire main bile duct was dilated, with a stone causing an obstruction. - Choledocholithiasis was found. Complete removal was accomplished by biliary sphincterotomy and balloon extraction. - One temporary stent was placed into the ventral pancreatic duct. - A biliary sphincterotomy was performed. - The biliary tree was swept. - One temporary stent was placed into the common bile duct. Procedure Code(s): --- Professional --- 40258, Endoscopic retrograde cholangiopancreatography (ERCP); with placement of endoscopic stent into biliary or pancreatic duct, including pre- and post-dilation and guide wire passage, when performed, including sphincterotomy, when performed, each stent [id number], 59, Endoscopic retrograde cholangiopancreatography (ERCP); with placement of endoscopic stent into biliary or pancreatic duct, including pre- and post-dilation and guide wire passage, when performed, including sphincterotomy, when performed, each stent [id number], Endoscopic retrograde cholangiopancreatography (ERCP); with removal of calculi/debris from biliary/pancreatic duct(s) 36881, 26, Combined endoscopic catheterization of the biliary and pancreatic ductal systems, radiological supervision and interpretation CPT copyright 2021 [employer]. All rights reserved. The codes documented in this report are preliminary and upon construction tech review may be revised to meet current compliance requirements. Vitaliy Kumar DO 05/10/2025 8:20:40 PM This report has been signed electronically. Number of Addenda: 0 Note Initiated On: 05/10/2025 6:28 PM
--- NOTE | 2025-05-10 20:33 | PCM.POST.ANE ---
Anesthesia: Postop Eval I Current Vital Signs Temperature: 97.3 F Pulse Rate: 89 Blood Pressure: 110/70 Respiratory Rate: 16 Pulse Ox: 98 Oxygen Delivery Method: Room Air Assessment Airway patent: Yes Spontaneous unlabored respirations: Yes Mental status: Asleep nausea: No Vomiting: No Anesthesia Complication: No Fluid Hydration Crystalloid volume administer (ml): 500 Total IV fluid infused: 500 Progress Note Anesthesia document: Postop Eval 1 completed: Yes
[2025-05-10] MEDS: 0.9% Normal Saline (1000mL) 1,000 ML 300 ML IV (23:45)
--- NOTE | 2025-05-11 01:21 | PCM.POSTANE2 ---
Anesthesia Postop Eval I Sum Postop Eval Completion status Anesthesia document: Postop Eval 1 completed: Yes Anesthesia Postop Eval I Summary Anesthesia Postop Eval I Summary: Anesthesia Postop Eval I: Assessment Summary Airway patent Yes 05/10/25 20:34 Spontaneous unlabored Yes 05/10/25 20:34 respirations Mental status Asleep 05/10/25 20:34 nausea No 05/10/25 20:34 Vomiting No 05/10/25 20:34 Anesthesia Postop Eval I: Fluid Summary Crystalloid volume administer 500 05/10/25 20:34 (ml) Colloids volume administered ( ml) Blood Product volume administered (ml) Total IV fluid infused 500 05/10/25 20:34 Anesthesia Postop Eval I: Summary Notes Anesthesia Complication No 05/10/25 20:34 Anesthesia Complication Comment: Post-operative progress note Anesthesia: Postop Eval II Evaluation Mental status: Awake and Calm Pain Level: 0 nausea: No Vomiting: No Complications Anesthesia Complication: No
[2025-05-11] MEDS: 0.9% Normal Saline (1000mL) 1,000 ML 300 ML IV ×2 (02:51→06:15)
[2025-05-11 02:59] VITALS: BP 105/62; PULSE 70; RESP 16; TEMP 36.1; O2SAT 99
[2025-05-11 04:30] LABS: Hematocrit 35.3 % (37-47); Hemoglobin 11.5 g/dL (12.0-15.0); Immature Granulocytes Count 0.020 X10^3/uL (0.0-0.0); Mean Corp Hgb Conc 32.6 g/dL (32-36); Mean Corpuscular Volume 91.7 fL (81-99); Mean Platelet Vol. 11.1 fl (6.2-12.0); NRBC Flagged by Analyzer 0 % (0-5); Platelet Count 208 K/mm3 (150-450); RBC Distribution Width CV 13.1 % (11.6-14.6); RBC Distribution Width SD 43.2 fl (35.1-43.9); Red Blood Count 3.85 M/mm3 (4.2-5.4); White Blood Count 6.7 K/mm3 (4.4-11.0)
[2025-05-11 05:06] LABS: AST(SGOT) 241 U/L (<=31); Alanine Aminotransfer ALT/SGPT 493 U/L (<=34); Albumin, Serum 3.2 g/dL (3.5-5.0); Alkaline Phosphatase 158 U/L (35-104); Anion Gap 11 (5-15); BUN 4 mg/dL (4-19); BUN/Creat Ratio 7.6 RATIO (10-20); Calcium,Total 7.9 mg/dL (7.6-11.0); Carbon Dioxide 18.5 mmol/L (21.0-32.0); Chloride 110 mmol/L (98-108); Estimated Creatinine Clearance 130.18 ml/min (50-250); Globulin 2.1 g/dL (2.2-4.2); Glucose 99 mg/dL (70-99); Potassium 3.7 mmol/L (3.3-5.1)
[2025-05-11] MEDS: Piperacil/Tazobactam 3.375 GM in 0.9% Normal Saline (50mL MB+) 50 ML IV (06:16)
[2025-05-11 06:55] VITALS: BP 103/65; PULSE 66; RESP 16; TEMP 37; O2SAT 100
--- NOTE | 2025-05-11 09:04 | PCM.PN.SRG ---
Subjective Subjective Tolerating clears pain improved from admit–status post ERCP Objective Data Objective Data Vital Signs: Vital Signs Temp Pulse Resp BP Pulse Ox O2 Del Method 98.6 F 66 16 103/65 100 Room Air 05/11/25 06:55 05/11/25 06:55 05/11/25 06:55 05/11/25 06:55 05/11/25 06:55 05/11/25 06:55 Oxygen Delivery Method Room Air Weight: 161 lb 9.581 oz Body Mass Index (BMI) 28.6 Intake & Output: Intake and Output for Last 24 Hours 05/09/25 05/10/25 05/11/25 23:59 23:59 23:59 Intake Total 50 / 50 2268.04 / 2268.04 1979 Balance 50 / 50 2268.04 / 2268.04 1979 Lab / Micro Data 05/11/25 03:29 05/11/25 03:29 Labs: Laboratory Results - last 24 hr 05/11/25 03:29: WBC 6.7, RBC 3.85 L, Hgb 11.5 L, Hct 35.3 L, MCV 91.7, MCH 29.9, MCHC 32.6, RDW Std Deviation 43.2, RDW Coeff of Laura 13.1, Plt Count 208, MPV 11.1, Immature Gran % (Auto) 0.300, Neut % (Auto) 71.2 H, Lymph % (Auto) 20.1, [place] % (Auto) 6.9, Eos % (Auto) 0.9, Baso % (Auto) 0.6, Absolute Neuts (auto) 4.8, Absolute Lymphs (auto) 1.34, Nucleated RBC % 0, Sodium 140, Potassium 3.7, Chloride 110 H, Carbon Dioxide 18.5 L, Anion Gap 11, BUN 4, Creatinine 0.54 L, Estim Creat Clear Calc 130.18, Est GFR (MDRD) Non-Af 118, BUN/Creatinine Ratio 7.6 L, Glucose 99, Calcium 7.9, Total Bilirubin 1.94 H, AST 241 H, ALT 493 H, Alkaline Phosphatase 158 H, Total Protein 5.3 L, Albumin 3.2 L, Globulin 2.1 L, Albumin/Globulin Ratio 1.5 Radiography Diagnostic Testing: Radiology Impression C-Arm Fluoroscopy 05/10/25 19:00 IMPRESSION: Access of the common hepatic duct with filling defects that could represent bubbles versus stones. No definitive free spill of contrast into the duodenum visualized on the provided images. Please refer to operative note for complete real-time findings and impressions. Reading Location: [facility] Endo Retro Cholangiopancreatogram 05/10/25 19:00 IMPRESSION: Access of the common hepatic duct with filling defects that could represent bubbles versus stones. No definitive free spill of contrast into the duodenum visualized on the provided images. Please refer to operative note for complete real-time findings and impressions. Reading Location: [facility] Physical Exam Const oriented x3 and no apparent distress Resp normal respiratory effort Cardio regular rate GI soft to palpation and non-tender Inspection: Negative for abdominal distention Assessment & Plan Assessment/Plan (1) S/P ERCP: (2) Cholelithiasis: PLAN: Plan Patient tolerating p.o. will advance diet patient is able to tolerate low-fat food plan on DC home and patient will plan to come back for a laparoscopic cholecystectomy with Dr. Sparks on Tuesday at 1 PM-- arrival 11:30 AM. Anabela Mcfarlane M.D. Pager: [phone] [facility] [address] [place] [address], [facility], [address] [place] [address] Office: [phone] Charges/Coding Visit Charges Inpatient E&M: 39246 Subs Hosp L2
[2025-05-11 10:12] VITALS: BP 108/72; PULSE 79; RESP 17; TEMP 36.8; O2SAT 100
== END 2025-05-11 11:38 | disposition home or self-care (01) | DRG 446 ==
LOC: ED 22:52 → MS3 05-10 01:11
PROVIDERS: Admitting Provider Surgery; Emergency Provider Student in an Organized Health Care Education/Training Program; PCP Family Medicine; Visit Provider Surgery
DX: K80.71 Calculus of gallbladder and bile duct without cholecystitis with obstruction (principal); Z83.79 Family history of other diseases of the digestive system
CPT/HCPCS: 36415; 74330; 76000; 76705; 80053; 81001; 81025; 83690; 85025; 93005; 97802; 99284; C2625; A4216; J2405

== ENCOUNTER 2025-05-13 11:35 | Day surgery (SDC) | payer SELFPAY ==
[2025-05-13] VITALS (11 sets, daily range): BP systolic 103–114; BP diastolic 64–71; PULSE 77–99; RESP 14–18; TEMP 36.4–36.9; O2SAT 93–100; BMI 28.5
[2025-05-13 11:55] LABS: Internal QC Validated? YES +Cl - CLEAR BKGD; Pregnancy, Urine Negative Negative
[2025-05-13 11:57] LABS: Record Kit Lot#,Urine Preg 0000980607
--- NOTE | 2025-05-13 12:00 | RAD_ITS ---
PROCEDURE: CHOLANGIOGRAM/ O R,INITIAL 05/13/2025 REASON FOR EXAM: EDWIGE WITH IOC TECHNIQUE: Procedure Code: RADCHO Modality: DX Procedure: CHOLANGIOGRAM/ O R,INITIAL COMPARISON: None FINDINGS: 140 images, 21 seconds, 9.80 mGy. Multiple filling defects are noted in the common bile duct. RAD/Cholangiogram/ O R,Initial IMPRESSION: Fluoro was provided. Reading Location: [facility]
[2025-05-13] MEDS: Lactated Ringers 1,000 ML 15 ML IV (12:06)
--- NOTE | 2025-05-13 12:29 | PCM.PRE.AN2 ---
ASA Classification* ASA Classification ASA Classification: 2 Assessment & Plan Anesthesia* Anesthesia Assessment Anesthesia Assessment: Discussed sedation and/or anesthesia options, risks, benefits, and alternatives with patient/parents/legal guardian/POA. Questions invited. The patient/parents/legal guardian/POA seems to understand and agrees to proceed with anesthesia plan. Reviewed the physical assessment, medical history, allergy history and patient home medications list prior to surgery/procedure/anesthetic and documented any changes. Performed airway and anesthesia risk assessments. Anesthesia Type Anesthesia Type: General History Source History Obtained from:: Patient and Chart Anesthesia Focused Assessment* Temperature: 98 F Pulse Rate: 99 Blood Pressure: 114/65 Respiratory Rate: 16 Pulse Ox: 100 Oxygen Delivery Method: Room Air Airway Assessment Mouth opens: >3 cm Mallampati Score: III Teeth Condition: Missing (Patient has a couple missing teeth. The rest of the teeth are tight.) Neck Range of motion (ROM): Limited ROM (Somewhat Decreased) Labs Anesthesia Preop lab: CBC WBC, (4.4-11.0) 6.7 K/mm3 05/11/25, : RBC, (4.2-5.4) 3.85 M/mm3 L 05/11/25, : Hgb, (12.0-15.0) 11.5 g/dL L 05/11/25, : Hct, (37-47) 35.3 % L 05/11/25, : Plt Count, (150-450) 208 K/mm3 05/11/25, 03: CHEMISTRY Potassium, (3.3-5.1) 3.7 mmol/L 05/11/25, : Sodium, (133-145) 140 mmol/L 05/11/25, : BUN, (4-19) 4 mg/dL 05/11/25, : Creatinine, (0.70-1.20) 0.54 mg/dL L 05/11/25, Glucose, (70-99) 99 mg/dL 05/11/25, : COAG Urine Test Negative Negative Today, 11:50 Pre-Assessment Diagnosis/Proposed Procedure Planned Operative Procedure(s): laparoscopic cholecystectomy Anesthesia History 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 When Was Last Pacemaker Check QUESTION #4 FULL TEXT: You/Your Family Experience fever (hyperthermia) with Anesthesia Last Oral Intake Last Oral intake: Last Oral Intake NPO since 09:00 05/13/25 11:58 Meds taken in AM with sips of water? Meds patient instructed to take am of surgery Any additional information?: Yes NPO since: 09:00 (Patient had water at 9 AM. ) Meds taken in AM with sips of water?: No PONV PONV - wind project manager: PONV - wind project manager Female Yes 05/13/25 12:04 HX of Motion Sickness No 05/13/25 12:04 HX of N/V After Surgery No 05/13/25 12:04 Non-Smoker Yes 05/13/25 12:04 Duration of Surgery greater Yes 05/13/25 12:04 than 60 minutes Number of Risk Factors 3 05/13/25 12:04 PONV Score Moderate Risk 05/13/25 12:04 Height & Weight Height & Weight: Anesthesia: Height & Weight Height 5 ft 3 in 05/13/25 11:58 Weight: 73 kg 05/13/25 11:58 Body Mass Index (BMI) 28.5 05/13/25 11:58 Respiratory Assessment Respiratory Assessment - wind project manager: Respiratory Tract Infection Hx - wind project manager Hx Respiratory Tract Infection No 05/13/25 12:04 STOP Sleep Apnea STOP Sleep Apnea - wind project manager: STOP Sleep Apnea - wind project manager Hx Hypertension No 05/13/25 12:04 Hx Sleep Apnea No 05/13/25 12:04 CPAP BIPAP Do you snore loudly (louder No 05/13/25 12:04 than talking or can be heard Do you often feel tired/ No 05/13/25 12:04 fatigued/ sleepy during daytime? Has anyone observed you stop No 05/13/25 12:04 breathing during sleep? STOP Results Negative 05/13/25 12:04 QUESTION #5 FULL TEXT : Do you snore loudly (louder than talking or can be heard through closed doors)? Tobacco Use History Tobacco Use History - wind project manager: Tobacco Use History - wind project manager Tobacco Use Smoking Status Never smoker 05/13/25 12:04 Hx Tobacco Use No 05/13/25 12:04 Years Smoking Packs Smoked per Day Smoking Cessation Date was within the last 15 years Hx Smoking Cessation Date Hx Smoking Cessation Counseling Hematologic Medial History Hematologic Hx - wind project manager: Hematologic Medical Hx - technical documentation specialist Hx of Blood Transfusion No 05/13/25 12:04 Hx of Transfusion in last 3 No 05/13/25 12:04 Months Date of Last Transfusion (if within last 3 months) Ever experience any problems No 05/13/25 12:04 with transfusion(s)? Specify any problems Hx of Preganancy in last 3 No 05/13/25 12:04 Months Nurse Filling Out Transfusion [email or web address] 05/13/25 12:04 & Questions: Date: 05/13/25 05/13/25 12:04 Time: 12:05 05/13/25 12:04 Patient unable to answer at this time (ie. confused, unrespo /Reproduction History /Reproductive History - wind project manager: /Reproductive Hx- wind project manager Hx Now No 05/13/25 12:04 Gestational Age (in weeks): EDC: Hx Hx Para Hx Section SAB No 05/13/25 12:04 Does the father of the baby or his family experience fever w Father of the baby Malignant Hypertension history comment Active Medications Active Medications: Current Medications Generic Name Dose Route Start Last Admin Trade Name Freq PRN Reason Stop Dose Admin Lactated Ringer's 1,000 mls @ 15 mls/hr 05/13/25 11:45 05/13/25 12:06 IV 15 mls/hr .Q48H RUDDY Administration PFSH Medical History (Updated 05/13/25 @ 12:04 by Jairo Tracey) Non-smoker Wears glasses Home Medications Medication Instructions Recorded Last Taken Type NK 05/09/25 Unknown History Allergy/AdvReac Type Severity Reaction Status Date / Time No Known Allergies Allergy Verified 05/13/25 11:56 Surgical History S/P ERCP Social History Smoking Status: Never smoker Review of Systems (Anesthesia) ROS Narrative System reviewed and no additional complaints, except as documented.
--- NOTE | 2025-05-13 12:35 | PCM.HP.BLA ---
History and Physical Date of Admission: 05/13/25 [facility] Medical Records Department [address] [place] [address] History & Physical Exam 05/10/25 0054 MR#: [id number] Acct: [id number] Name: FABIANA FAUSTIN Rep #: [id number] : 1980 44 From: Frank Sparks MD PCP: Dr. Penny Kuo MD Status: ADM IN Location: [place] [id number] HPI - General General Date of Service: 05/10/25 Chief Complaint: Abdominal pain HPI Narrative FABIANA FAUSTIN, is a 44 F who presents to [facility] direction from her PCP after first developing acute onset diffuse abdominal pain 5 days ago. She states the pain spontaneously remitted for a day but then returned consistently for the following 3 days. She noticed some relative localization to the right abdomen. She reports that she had some abnormal laboratory testing and ultrasound was originally scheduled in several days as an outpatient but with the laboratory results she was advised to present to the emergency department for an earlier exam. Beyond the development of her abdominal pain Mrs. Faustin notes some associated dark urine, constipation, and acholic stools today. ED workup revealed normal white blood cell count but significantly elevated bilirubin at 3.6 as well as transaminitis. Right upper quadrant ultrasound was obtained showing dilated common bile duct to 1.4 cm with choledocholithiasis. Radiology noted concern for possible early acute cholecystitis given the presence of some pericholecystic fluid and positive sonographic Bryan sign but were unable to be conclusive as they felt this could just be secondary to the distal obstruction more generally. Patient states that she has had concern for "gallbladder attacks" approximately 3 times over the last 3 months. She denies any history of being diagnosed with gallstones but shares that her mother dealt with gallbladder issues and identified a similar pattern with her daughter. Mrs. Faustin goes on to detail that this concern has gone beyond even the last 3 months to the last several years. Patient denies any regular intake of medication and has never underwent surgery. [facility] Medical History no medical history Home Medications Medication Instructions Recorded Last Taken Type NK 05/09/25 Unknown History Allergy/AdvReac Type Severity Reaction Status Date / Time No Known Allergies Allergy Verified 05/09/25 21:44 Surgical History no surgical history Social History Smoking Status: Never smoker Vital Signs Vital Signs Vital Signs: 05/09/2521:40 05/09/2522:04 05/09/2523:40 Temperature 98.2 F Temperature Source Temporal Pulse Rate 87 64 Respiratory Rate 18 18 Respiratory Effort Normal Respiratory Pattern Normal Blood Pressure 118/72 116/74 Blood Pressure Mean 87 88 Pulse Ox 98 98 Oxygen Delivery Method Room Air Room Air 05/10/2500:22 05/10/2500:22 Temperature 98.2 F 98.2 F Temperature Source Oral Pulse Rate 64 64 Respiratory Rate 18 18 Respiratory Effort Respiratory Pattern Blood Pressure 116/74 116/74 Blood Pressure Mean 88 88 Pulse Ox 98 98 Oxygen Delivery Method Room Air Weight Weight: 165 lb Body Mass Index (BMI) 28.3 Physical Exam Const alert, oriented x3, no apparent distress and well nourished General Appearance: cooperative Resp normal respiratory effort GI GI Narrative: Normal habitus, nondistended, no visible hernia, soft, mildly tender to palpation primarily in the epigastrium and slightly to the right upper quadrant. Negative Bryan sign. Results Lab / Micro Data 05/09/25 22:00 05/09/25 22:00 Labs: Laboratory Results - last 24 hr 05/09/25 21:53: Urine Color Yellow, Urine Clarity Clear, Urine pH 7.0, Ur Specific [place] 1.005, Urine Protein 15 H, Urine Glucose (UA) Normal, Urine Ketones Negative, Urine Occult Blood 150 H, Urine Nitrite Negative, Urine Bilirubin Negative, Urine Urobilinogen Normal, Ur Leukocyte Esterase Negative, Urine RBC 5-10 SEEN, Urine WBC 0-5 SEEN, Ur Squamous Epith Cells 0-5 SEEN, Urine Bacteria 1+, Urine Mucus 0 SEEN, Urine Test Negative 05/09/25 22:00: WBC 5.8, RBC 4.51, Hgb 13.7, Hct 40.7, MCV 90.2, MCH 30.4, MCHC 33.7, RDW Std Deviation 41.5, RDW Coeff of Laura 12.6, Plt Count 260, MPV 10.2, Immature Gran % (Auto) 0.200, Neut % (Auto) 62.8, Lymph % (Auto) 23.7, Ogle % (Auto) 9.7, Eos % (Auto) 2.6, Baso % (Auto) 1.0, Absolute Neuts (auto) 3.6, Absolute Lymphs (auto) 1.36, Nucleated RBC % 0, Sodium 140, Potassium 3.5, Chloride 105, Carbon Dioxide 24.4, Anion Gap 11, BUN 4, Creatinine 0.66 L, Estim Creat Clear Calc 110.01, Est GFR (MDRD) Non-Af 112, BUN/Creatinine Ratio 6.0 L, Glucose 121 H, Calcium 9.2, Total Bilirubin 3.67 H, AST 176 H, ALT 437 H, Alkaline Phosphatase 209 H, Total Protein 7.3, Albumin 4.2, Globulin 3.1, Albumin/Globulin Ratio 1.4, Lipase 27 Imaging Radiology Impression Gallbladder Ultrasound 05/09/25 21:55 IMPRESSION: Choledocholithiasis with a dilated 1.4 cm common bile duct and stones up to 0.6 cm, producing intrahepatic biliary ductal dilation and most likely accounting for the patient's pain and abnormal liver enzymes. Cholelithiasis with sludge, positive sonographic Bryan's sign, and mild pericholecystic fluid, raising concern for early acute cholecystitis; however, clinical presentation is more strongly explained by ductal obstruction. Reading Location: [id number] Assessment & Plan Assessment/Plan (1) Choledocholithiasis: PLAN: Patient is a 44-year-old, otherwise healthy, female who presents with signs and symptoms of choledocholithiasis that began approximately 5 days ago (although patient gives a vague history of symptoms perhaps preceding this onset by several months). I discussed with her the pathophysiology of this condition and its treatment–including ERCP with stone removal followed by same admission cholecystectomy to manage her risk for future choledocholithiasis. I am presently unconvinced of a concurrent diagnosis of cholecystitis. I shared we would plan to admit to inpatient, maintain n.p.o. with IV antibiotic therapy to minimize her risk for cholangitis, and await consultation with GI for ERCP likely later today (emergency medicine confirmed out reach to GI prior to contacting me). Given the approach of the weekend would then likely be looking at performing cholecystectomy 05/13/2025. All questions were answered from patient and she confirmed her understanding. I have examined the patient the following changes are noted: Patient underwent ERCP with gastroenterology on 05/10/2025. Given the late hour her admission was maintained until she was examined postprocedure the morning of 05/11/2025 and determined to be fit for discharge. She presents today stating that she had some mild discomfort in her abdomen but this seems to have been alleviated after 2 bowel movements today. Her abdominal exam is benign and she has negative Bryan sign. I discussed the details of the procedure, postprocedure activity restrictions, expectation for postoperative follow-up, and need to schedule repeat ERCP with stent removal with GI. Consents were confirmed. Will proceed to the operating room for laparoscopic cholecystectomy with intraoperative cholangiography.
[2025-05-13] MEDS: Cefazolin 1 GM/5 ML Vial 2 GM IV (12:56)
[2025-05-13] MEDS: Midazolam 2 MG/2 ML Syringe IV (12:56)
--- NOTE | 2025-05-13 13:00 | GALL_PTH ---
PATIENT: FABIANA FAUSTIN LOC: [facility] [place][id number] AGE/SX: 44/F ROOM: RE05/13/[address]: Dr. Frank Sparks MD : 1980 BED: DIS: 05/13/2025 SPEC #: [id number] RECD: 05/13/25 15:08 STATUS: BRITTANY SARABJIT #: [id number] LU: 05/13/25 13:[address]: Frank Sparks DEPT: SURGICAL PATHOLOGY RECD BY: Celso Licea ENTERED: 05/14/25 10:07 SP TYPE: MALKA NEFF DR: Dr. Penny Kuo MD Tissues: A - Gallbladder, NOS Procedures: Surgery Specimen Level III HEADER OPERATION: Laparoscopic cholecystectomy with IOC PRE-OP DIAGNOSIS: Choledocholithiasis TISSUE SUBMITTED: A- Gallbladder MICROSCOPIC DIAGNOSIS A. Gallbladder, laparoscopic cholecystectomy: * Acute and chronic cholecystitis * Cholelithiasis MICROSCOPIC DESCRIPTION Slides are reviewed. GROSS DESCRIPTION A. Received in formalin labeled with the patient's name and date of . Designated as "gallbladder" is a 8.6 x 3.4 x 2.4 cm purple-adame mccartney, intact gallbladder with attached patent cystic duct (inked black, shaved). A lymph node is not present. Opening reveals green tenacious bile and multiple irregular to bosselated choleliths, 0.1 cm to 0.7 cm. The mucosa is light green and granular with patchy congestion, and area of slightly irregular mucosal folding near the fundus and a maximum wall thickness of 0.3 cm. Cholesterolosis is not present. Incident Response Engineer sections are submitted in 1 cassette. PA [id number]
[2025-05-13] MEDS: Lidocaine 1% (5 ml sdv) 5 ML Vial 8 ML IV (13:02)
[2025-05-13] MEDS: fentaNYL 100 MCG/2 ML Ampul IV (13:40)
[2025-05-13] MEDS: Bupiv/Epi 0.25% 30 ML Vial (14:28)
--- NOTE | 2025-05-13 14:30 | PCM.OPRPT ---
Procedures Digestive 40xxx-49xxx: [id number] Laparo cholecystectomy/graph Operative Report (Standard) Operative Information Date of Procedure: 05/13/25 Pre-Operative Diagnosis: Choledocholithiasis status post ERCP and stone removal with stent placement Post-Operative Diagnosis: Choledocholithiasis status post ERCP and stone removal with stent placement and mild acute cholecystitis Surgery/Procedure Performed: Laparoscopic cholecystectomy with intraoperative cholangiogram assembler dc field yoke: Yes Export Freight Specialist: Chepe Reese Tasks completed by assistant quality manager: Opening & closing and Other (Laparoscopic camera operation) Type of Anesthesia: General/Supplemental RN Documented Start/Stop Times: Operation Date: 05/13/25 13:00 Case Time Into Pre-Op 05/13/25 11:40 Anesthesia Start 05/13/25 12:56 Into Room 05/13/25 12:56 Procedure Start 05/13/25 13:21 Procedure End 05/13/25 14:37 Anesthesia End 05/13/25 14:42 Out of Room 05/13/25 14:42 Into Recovery 05/13/25 14:45 Into Phase II Recovery 05/13/25 15:33 Out of Recovery 05/13/25 15:33 Out of Phase II 05/13/25 17:53 Procedure Start Time: 13:21 Procedure Stop Time: 14:37 Select all DRAINS/GRAFTS/IMPLANTS that apply: None Estimated Blood Loss: 20 Specimen collected: Yes Description of specimen(s) removed: Gallbladder Description of surgery: After proper identification in the preoperative holding area the patient was brought to the operating room where she was positioned supine on the operating room table. Preoperatively SCDs were connected and antibiotics were administered with 2 g Ancef. General anesthesia was then induced. Patient's abdomen was prepped and draped in usual sterile fashion. A formal timeout was conducted to confirm both patient and the procedure. Procedure was begun with a supraumbilical incision which was extended deeply down to the level of the fascia. The fascia was elevated and incised, as well as the peritoneum. A finger sweep was performed to ensure there were no underlying adhesions and a 12 mm balloon trocar was inserted. Pneumoperitoneum was established at 15 mmHg. Three additional trocars (all 5 mm) were placed in the epigastrium and in the right upper quadrant. Inspection of the peritoneum revealed no inadvertent injury to the viscera below. The gallbladder was visualized with mild inflammation. The gallbladder fundus was then grasped and elevated cephalad. Then, using careful dissection the peritoneum was opened and the structures of the hepatocystic triangle were delineated. There was a rather large posterior cystic artery as well as an H branch coming from the main anterior cystic artery. In the name of trying to maintain hemostasis titanium clips were placed both structures and both were divided distally. Once the critical view of safety was obtained, the cystic duct was singly clipped and partially divided with a ductotomy. The proximal duct was milked of any debris until there was backflow of bile. Using an Vazquez [place] clamp, a cholangiocatheter was fed into the proximal segment of the cystic duct over a wire and clamped into place after the wire was withdrawn. Under fluoroscopy a cholangiogram was then obtained showing a standard length cystic duct flowing into a common bile duct with unobstructed antegrade flow of contrast into the duodenum via a common bile duct stent. There was also retrograde flow through the common hepatic duct into the right and left hepatic ducts. However, through the common hepatic system there were several filling defects of undetermined etiology seeming to potentially represent bubbles the way they moved. The cholangiogram was repeated with largely unaltered result. Satisfied with this result (clear unobstructed antegrade flow through the ampulla of Vater), the cholangiocatheter was withdrawn and the proximal cystic duct was sealed with Hem-o-justo clips and the cystic duct was completely transected. The same process was used for the cystic artery. The gallbladder was then removed from the gallbladder fossa with the use of electrocautery. Selective electrocautery was used to obtain hemostasis in the gallbladder fossa. The gallbladder was placed in an Endo Catch bag and removed from the peritoneum. Morison's pouch was irrigated and the effluent was suctioned free of the peritoneum. Hemostasis was again confirmed. Pneumoperitoneum was evacuated and the fascia of the 12 mm port sites was closed with #1Vicryl in a [id number] fashion. A total of 30 mL of anesthetic was injected at the port sites for postoperative pain control. The skin of each port site was then closed in subcuticular fashion using 4-0 Monocryl. Steri-Strips and bandages were applied as dressings. Patient tolerated the procedure well without any apparent complications. On emergence from their anesthetic the patient was taken to PACU for ongoing recovery. Surgical Findings: – Evidence of mild cholecystitis with inflammatory/edema plane between gallbladder and liver as well as under the peritoneum – Biliary duct work showing filling defects within the common hepatic and right and left hepatic ducts of undetermined etiology, opacification of the distal common bile duct with in-place stent and normal antegrade filling of the duodenum Complications Complications: No Admit VTE Documentation VTE Mechan Device Prophylaxis: SCD's
--- NOTE | 2025-05-13 14:34 | EX.PCM.DISCH ---
Discharge Instructions Diet Discharge Diet: No restrictions Activity Discharge Activity: May Not Drive (No driving while using narcotic pain medication) and May Shower (Postoperative day 1) May shower in (days): 2 Ice area for (Minutes): 20 Lifting Restrictions: No lifting greater than 15 pounds for 2 weeks after surgery Dressing / Incision Call your doctor if your incision/area has: Continuous Slow Oozing, Increased Pain/ Swelling, Increased Redness, Foul Smelling Discharge and Swelling at the incision site Call your doctor if you observe: Fever of 101 or Higher Remove Dressing in: 2 days (Please leave Steri-Strips intact until they fall off spontaneously or are taken off at your follow-up visit) Cleanse incision/area with: Soap & Water Follow Up Care Please Follow Up With: Frank Sparks MD When: 7-10days postop Test Results: Test results from this visit will be discussed in further detail at your follow-up appointment, if applicable. Discharge Plan Admission Primary Reason for Your Visit: Gallbladder surgery Attending Provider: Frank Sparks Primary Care Provider: Penny Kuo Instructions Print Language: Bulgarian Discharge Orders/Prescriptions Prescriptions: New oxycodone 5 mg tablet 5 mg PO Q6H PRN (Reason: pain) 3 Days Qty: 14 0RF Referrals / Follow Up: Penny Kuo MD [Primary Care Provider, Medical] Disposition Disposition (needs filled in before D/C Order can be placed): Home, Self Care
--- NOTE | 2025-05-13 14:47 | PCM.POST.ANE ---
Anesthesia: Postop Eval I Current Vital Signs Temperature: 98.4 F Pulse Rate: 95 Blood Pressure: 104/68 Respiratory Rate: 18 Pulse Ox: 95 Assessment Airway patent: Yes Spontaneous unlabored respirations: Yes nausea: No Vomiting: No Anesthesia Complication: No Fluid Hydration Crystalloid volume administer (ml): 1,200 Total IV fluid infused: 1,200 Progress Note Anesthesia document: Postop Eval 1 completed: Yes
--- NOTE | 2025-05-13 16:37 | POSTOPAN2_ITS ---
Anesthesia Postop Eval I Sum Postop Eval Completion status Anesthesia document: Postop Eval 1 completed: Yes Anesthesia Postop Eval I Summary Anesthesia Postop Eval I Summary: Anesthesia Postop Eval I: Assessment Summary Airway patent Yes 05/13/25 14:47 AIR BRUSH [email or web address] Spontaneous unlabored Yes 05/13/25 14:47 AIR BRUSH [email or web address] respirations Mental status nausea No 05/13/25 14:47 AIR BRUSH [email or web address].[email or web address] Vomiting No 05/13/25 14:47 AIR BRUSH [email or web address] Anesthesia Postop Eval I: Fluid Summary Crystalloid volume administer 1,200 05/13/25 14:47 AIR BRUSH [email or web address] (ml) Colloids volume administered ( ml) Blood Product volume administered (ml) Total IV fluid infused 1,200 05/13/25 14:47 AIR BRUSH [email or web address] Anesthesia Postop Eval I: Summary Notes Anesthesia Complication No 05/13/25 14:47 AIR BRUSH [email or web address] Anesthesia Complication Comment: Post-operative progress note Anesthesia: Postop Eval II Evaluation Mental status: Awake and Calm Pain Level: 2 nausea: No Vomiting: No
--- NOTE | 2025-05-13 16:37 | PCM.POSTANE2 ---
Anesthesia Postop Eval I Sum Postop Eval Completion status Anesthesia document: Postop Eval 1 completed: Yes Anesthesia Postop Eval I Summary Anesthesia Postop Eval I Summary: Anesthesia Postop Eval I: Assessment Summary Airway patent Yes 05/13/25 14:47 BATCH [email or web address] Spontaneous unlabored Yes 05/13/25 14:47 BATCH [email or web address] [email or web address] respirations Mental status nausea No 05/13/25 14:47 BATCH [email or web address] [email or web address].[email or web address] Vomiting No 05/13/25 14:47 BATCH [email or web address] Anesthesia Postop Eval I: Fluid Summary Crystalloid volume administer 1,200 05/13/25 14:47 BATCH [email or web address] (ml) Colloids volume administered ( ml) Blood Product volume administered (ml) Total IV fluid infused 1,200 05/13/25 14:47 BATCH [email or web address] Anesthesia Postop Eval I: Summary Notes Anesthesia Complication No 05/13/25 14:47 BATCH [email or web address] Anesthesia Complication Comment: Post-operative progress note Anesthesia: Postop Eval II Evaluation Mental status: Awake and Calm Pain Level: 2 nausea: No Vomiting: No
== END 2025-05-13 17:53 | disposition home or self-care (01) ==
LOC: SDC 11:39 → AC 11:41
PROVIDERS: Anesthesiology; PCP Family Medicine; Referring Provider Surgery; Visit Provider Surgery
DX: K80.66 Calculus of gallbladder and bile duct with acute and chronic cholecystitis without obstruction (principal)
CPT/HCPCS: 47563; 00790; 74300; 76000; 81025; 88304; C1769; J2405